=== PATIENT | female | born 1975 | race Caucasian/White ===

== ENCOUNTER 2024-09-21 10:00 | Inpatient (IN) | payer OTHER ==
[~2024-09-21] VITALS: Ht 162.6 cm; Wt 62.6 kg
[2024-09-21 10:02] VITALS: BP 116/65
[2024-09-21 10:06] VITALS: BP 137/84
[2024-09-21] MEDS ORDERED: TAPAZOLE5 MG PO (10:07)
[2024-09-21] MEDS ORDERED: BENZONATATE100 MG PO (10:09)
[2024-09-21 10:11] LABS: URINE APPEARANCE Clear; URINE BILIRRUBIN Negative (NEGATIVE); URINE BLOOD Negative; URINE COLOR Yellow; URINE GLUCOSE Negative (NEGATIVE); URINE KETONE Negative (NEGATIVE); URINE LEUKOCYTE Trace; URINE NITRATE Negative; URINE PROTEIN Negative (NEGATIVE); URINE UROBILINOGEN 0.2 E.U./dl
[2024-09-21 10:12] LABS: HEMATOCRIT 35.8 % (36.0-45.00); HEMOGLOBIN 12.2 g/dL (12.0-15.00); MEAN CELL VOLUME 81.5 fL (80.00-100.00); MEAN CORPUSCULAR HEMOGLOBIN 27.8 pg (27.00-32.0); MEAN CORPUSCULAR HGB CONC 34.1 g/dl (32.0-36.0); PLATELET COUNT 173 K/uL (150-450)
[2024-09-21 10:13] LABS: URINE EPITHELIAL CELLS 31.8 uL (0.0-38.8); URINE RBC 11.9 uL (0.0-20.8); URINE WBC 19.4 uL (0.0-23.2)
[2024-09-21 10:30] LABS: INR 0.96; PARTIAL THROMBOPLASTIN TIME 21.1 SECONDS (22.0-34.0); PROTHROMBIN TIME 10.5 SECONDS (9.0-11.5)
[2024-09-21 10:33] LABS: URINE CAST 0.73 uL (0.0-1.40)
[2024-09-21 11:29] LABS: ALBUMIN 3.6 gm/dL (3.4-5.0); ALKALINE PHOSPHATASE 108 U/L (50-136); ALT/SGPT 20 U/L (12-78); ANION GAP 10 (10.0-20.0); AST/SGOT 13 U/L (15-37); BILIRUBIN TOTAL 0.58 mg/dL (0.3-1.2); BLOOD UREA NITROGEN 8 mg/dL (7-18); BUN CREA RATIO 22 (7.0-25.0); CALCIUM 9.2 mg/dL (8.5-10.1); CARBON DIOXIDE 27 mEq/L (21-32); CHLORIDE 109 mmol/L (98-107); CREATININE SERUM 0.36 mg/dL (0.55-1.02); GLOBULINA 3.8 G/DL (2.4-3.5); GLUCOSE FASTING 78 mg/dL (65-100); OSMOLALITY SERUM 280 MOSM/KG (275-295); POTASSIUM 4.31 mEq/L (3.5-5.1); SODIUM 142 mmol/L (136-145); TOTAL PROTEIN 7.4 gm/dL (6.4-8.2)
[2024-09-21 11:31] LABS: TSH < 0.005 uIU/mL (0.358-3.74)
[2024-09-21 12:14] LABS: T4 FREE 3.65 NG/ML (0.76-1.46)
[2024-10-04] MEDS ORDERED: DEXAMETHASONE SODIUM PHOSPHATE 4 MG/ML VIAL IV ONE (14:15)
[2024-10-04] MEDS ORDERED: ENALAPRILAT DIHYDRATE 1.25 MG/ML VIAL IV PRN (15:30)
[2024-10-04] MEDS ORDERED: ONDANSETRON HCL 2 MG/ML VIAL IV PRN (15:30)
[2024-10-04] MEDS ORDERED: DEXAMETHASONE SODIUM PHOSP/PF 10 MG/ML VIAL ONE (15:37)
[2024-10-04] MEDS ORDERED: TRAMADOL HCL 50 MG TABLET PO SCH (17:00)
[2024-10-04] MEDS ORDERED: ACETAMINOPHEN 500 MG GEL..CAP PO SCH (17:00)
[2024-10-04] MEDS ORDERED: CYCLOBENZAPRINE HCL 5 MG TABLET PO SCH (17:00)
[2024-10-04] MEDS ORDERED: ONDANSETRON HCL 2 MG/ML VIAL ONE (18:33)
[2024-10-04] MEDS ORDERED: ONDANSETRON HCL 2 MG/ML VIAL IV ONE (18:35)
[2024-10-04] MEDS ORDERED: Calcium Carbonate 1 TAB TABLET PO SCH (21:00)
[2024-10-04] MEDS ORDERED: PANTOPRAZOLE SODIUM 40 MG/VIAL VIAL IV PUSH SCH (21:00)
[2024-10-04] MEDS ORDERED: PANTOPRAZOLE SODIUM 40 MG/VIAL VIAL ONE (22:42)
[2024-10-05 00:53] VITALS: BP 116/65; O2SAT 100
[2024-10-05] MEDS ORDERED: LEVOTHYROXINE SODIUM 100 MCG TABLET PO SCH (06:00)
[2024-10-05 08:34] VITALS: BP 100/62; O2SAT 99
== END 2024-10-05 12:17 | disposition home or self-care (01) | DRG 627 ==
LOC: CIR.AMB 09-27 08:58 → SURH 09-27 08:58 → EDSTATUS 09-27 08:58 → SURH 09-27 11:30 → O/R 10-04 07:30 → SURH 10-04 07:30
PROVIDERS: ADMIT Surgery; ATTEND Surgery
PROC: 0GTK0ZZ Resection of Thyroid Gland, Open Approach (ICD-10-PCS; principal; 2024-10-04 07:00)
DX: E06.5 Other chronic thyroiditis (principal); E05.00 Thyrotoxicosis with diffuse goiter without thyrotoxic crisis or storm